=== PATIENT | female | born 1995 | race Hispanic/Latino ===

== ENCOUNTER 2018-02-04 00:44 | Emergency (ER) | payer OTHER ==
[2018-02-04 01:28] VITALS: BMI 29.0
[2018-02-04 01:31] VITALS: RESP 18
--- NOTE | 2018-02-04 02:48 | ED PDOC ---
HPI: Psych/Substance Abuse Time Seen by Provider: 02/04/18 01:27 Chief Complaint (Nursing): Alcohol Ingestion ED Caveat: Intoxicated History Per: EMS History/Exam Limitations: intoxication Onset/Duration Of Symptoms: Unknown Current Symptoms Are (Timing): Still Present Modifying Factor(s): Alcohol Additional History Per: EMS Additional Complaint(s): 22 y/o female who was brought by ambulance for public intoxication after being found sleeping in a hallway. No trauma or complaint. Past Medical History Reviewed: Historical Data, Nursing Documentation, Vital Signs Vital Signs: Last Vital Signs Temp 99.0 F 02/04/18 01:29 Pulse 69 02/04/18 01:29 Resp 18 02/04/18 01:29 BP 120/62 02/04/18 01:29 Pulse Ox 99 02/04/18 01:29 - Medical History PMH: No Chronic Diseases - Surgical History Surgical History: No Surg Hx - Family History Family History: States: No Known Family Hx - Allergies Allergies/Adverse Reactions: Allergies Allergy/AdvReac Type Severity Reaction Status Date / Time No Known Allergies Allergy Verified 02/04/18 01:28 Review of Systems Review Of Systems: ROS cannot be obtained secondary to pt's inabilty to answer questions. Physical Exam - Reviewed Nursing Documentation Reviewed: Yes Vital Signs Reviewed: Yes - Physical Exam Appears: Positive for: No Acute Distress. Negative for: Non-toxic (alcohol on breath) Head Exam: Positive for: ATRAUMATIC, NORMAL INSPECTION, NORMOCEPHALIC Skin: Positive for: Normal Color, Warm, DRY Eye Exam: Positive for: EOMI, Normal appearance, PERRL ENT: Positive for: Normal ENT Inspection Neck: Positive for: Normal, Painless ROM Cardiovascular/Chest: Positive for: Regular Rate, Rhythm Respiratory: Positive for: CNT, Normal Breath Sounds Gastrointestinal/Abdominal: Positive for: Normal Exam, Soft Back: Positive for: Normal Inspection Extremity: Positive for: Normal ROM Neurologic/Psych: Positive for: Alert, Oriented, Other (speech is slurred) - ECG O2 Sat by Pulse Oximetry: 99 - Progress Re-evaluation Time: 05:25 Condition: Re-examined, Improved Medical Decision Making Medical Decision Making: Impression: ETOH Intoxication Plan: - Labs Scribe Attestation Documented by Alisson Pereira acting as a scribe for Cherise Menezes MD. Scribe Attestation All medical record entries made by the Scribe were at my direction and personally dictated by me. I have reviewed the chart and agree that the record accurately reflects my personal performance of the history, physical exam, medical decision making, and the department course for this patient. I have also personally directed, reviewed, and agree with the discharge instructions and disposition. Disposition - Clinical Impression Clinical Impression: Alcohol abuse with intoxication - Patient ED Disposition Is Patient to be Admitted: No Doctor Will See Patient In The: Office Counseled Patient/Family Regarding: Studies Performed, Diagnosis, Need For Followup - Disposition Referrals: [facility] [Outside] Disposition: Routine/Home Disposition Time: 05:25 Condition: IMPROVED Instructions: Alcohol Poisoning (DC)
[2018-02-04 08:12] VITALS: BP 116/66; PULSE 89; TEMP 98
[2018-02-06 10:14] VITALS: O2SAT 99
== END 2018-02-04 06:34 | disposition home or self-care (01) ==
LOC: H.ER 00:44
DX: F10.129 Alcohol abuse with intoxication, unspecified (principal)